=== PATIENT | female | born 1980 | race Caucasian/White ===

== ENCOUNTER 2019-06-17 21:02 | Emergency (ER) | payer MEDICAID ==
[~2019-06-17] VITALS: Ht 157.5 cm; Wt 81.6 kg
[2019-06-17 21:20] VITALS: BP_SYST 107
--- NOTE | 2019-06-17 21:24 | NUR ---
Patient to ER bed 3 to gown for evaluation. Side rails up.
--- NOTE | 2019-06-17 21:30 | NUR ---
ER at bedside examining patient.
--- NOTE | 2019-06-17 21:31 | NUR ---
Pt came to the ED for evaluation of body aches, epigastric pain, loose diarrhea and chills. Reported that she is unable to hold food down. No other complaints/injuries noted. Will cont. to monitor.
[2019-06-17] MEDS ORDERED: NACL 0.9% 1,000 ML IV ONE (21:38)
[2019-06-17] MEDS ORDERED: ONDANSETRON HCL 4 MG/2 ML VIAL IVP ONE (21:45)
--- NOTE | 2019-06-17 22:04 | NUR ---
PT went to radiology via [place] (by [employer]), tolerated well. Will cont. to monitor.
[2019-06-17 22:14] LABS: HEMOGLOBIN 13.8 g/dL (12.0-16.0); MEAN CORPUSCULAR HEMOGLOBIN 31 pg (27-31); MEAN CORPUSCULAR HGB CONC 34 % (32-36); MEAN CORPUSCULAR VOLUME 93 fL (79.0-98.0); PLATELET COUNT (AUTO) 428 K/uL (130-430); RED BLOOD CELL COUNT(AUTO) 4.39 MIL/uL (4.2-6.2); RED CELL DISTRIBUTION WIDTH 12.9 % (9.0-15.0); WHITE BLOOD COUNT (AUTO) 24.3 K/uL (4.8-10.8)
[2019-06-17 22:25] LABS: CALCIUM 8.8 mg/dL (8.4-11.0); CREATININE 0.83 mg/dL (0.55-1.30); POTASSIUM 3.5 mmol/L (3.5-5.1)
[2019-06-17 22:34] LABS: ALBUMIN 3.8 g/dL (3.4-4.8); TOTAL BILIRUBIN 0.7 mg/dL (0.0-1.0)
[2019-06-17 22:53] LABS: ATYPICAL LYMPHOCYTES % 2 % (0-0); BASOPHILS % (MANUAL) 0 % (0-2); EOSINOPHILS % (MANUAL) 0 % (0-7); LYMPHOCYTES % (MANUAL) 12 % (20-46); MONOCYTES % (MANUAL) 4 % (0-11)
[2019-06-17] MEDS ORDERED: PANTOPRAZOLE SODIUM 40 MG/VIAL (PROTONIX) IVP ONE (23:00)
--- NOTE | 2019-06-17 23:30 | NUR ---
PT resting comfortably in bed, no signs of acute distress. Will cont. to monitor.
--- NOTE | 2019-06-18 | NUR ---
Pt notified ER that she has had an "elevated WBC for 3 years since she had a baby and that she needs to follow up with a blood doctor for further testing."
[2019-06-18] MEDS ORDERED: FLUO40CA49 PO (00:27)
[2019-06-18] MEDS ORDERED: BUPR-120 PO (00:27)
[2019-06-18] MEDS ORDERED: LIP20 PO (00:27)
[2019-06-18] MEDS ORDERED: SITA100T11 PO (00:27)
--- NOTE | 2019-06-18 00:30 | NUR ---
PT resting comfortably in bed, no signs of acute distress. Will cont. to monitor.
[2019-06-18] MEDS ORDERED: KETOROLAC TROMETHAMINE 30 MG VIAL IVP ONE (00:45)
--- NOTE | 2019-06-18 01:30 | NUR ---
PT sleeping comfortably in bed, no signs of acute distress. Will cont. to monitor.
[2019-06-18] MEDS ORDERED: LEVOFLOXACIN 500 MG TABLET PO ONE (01:45)
[2019-06-18 02:02] VITALS: BP_SYST 107
--- NOTE | 2019-06-18 02:02 | NUR ---
Patient given written and verbal discharge instructions and verbalizes understanding. ER MD Dr. Robles discussed with patient the results and treatment provided. Patient in stable condition. ID arm band removed. IV catheter removed intact and dressing applied, no active bleeding. Rx of cipro, zofran and protonix given. Patient educated on pain management and to follow up with PMD. Pain Scale 2/10, tolerable for pt. Opportunity for questions provided and answered. Medication side effect fact sheet provided.
== END 2019-06-18 02:02 | disposition home or self-care (01) ==
LOC: SED 21:02
DX: K52.9 Noninfective gastroenteritis and colitis, unspecified (principal); Z79.899 Other long term (current) drug therapy
CPT/HCPCS: 36415; 74021; 74176; 80053; 81025; 83690; 85007; 85027; 96361; 96374; 96375 ×2; 99284; C9113; J1885; J2405; J7030

== ENCOUNTER 2019-06-20 22:11 | Emergency (ER) | payer MEDICAID ==
[~2019-06-20] VITALS: Ht 157.5 cm; Wt 78.9 kg
[~2019-06-20 22:11] MED LIST: BUPR-120 PO; FLUO40CA49 PO; LIP20 PO; SITA100T11 PO
[2019-06-20 22:15] VITALS: BP_SYST 132
--- NOTE | 2019-06-20 22:23 | NUR ---
Patient to ER bed 1 to gown for evaluation. Side rails up. Report given to Cristina BRAUN.
--- NOTE | 2019-06-20 22:34 | NUR ---
ER at bedside examining patient.
--- NOTE | 2019-06-20 22:46 | NUR ---
ER at bedside examining patient.
[2019-06-20] MEDS ORDERED: NACL 0.9% 1,000 ML IV ONE (22:49)
--- NOTE | 2019-06-20 22:50 | NUR ---
patient arrived AOX4 with c/o vomiting since yesterday after taking antibiotics. patient states her doctor told her to stop taking the medication and she started having sob. patient can speak in full sentences without distress. patient is able to walk 100 ft with a stable gait without distress or sob. patient denies distress at this time. no other complaint or injury at this time.
[2019-06-20] MEDS ORDERED: ONDANSETRON HCL 4 MG/2 ML VIAL IVP ONE (23:00)
[2019-06-20 23:07] LABS: BASOPHILS # (AUTO) 0.1 K/uL (0.0-0.2); BASOPHILS % (AUTO) 1.3 % (0.0-2.0); EOSINOPHILS # (AUTO) 0.3 K/uL (0.0-0.4); EOSINOPHILS % (AUTO) 2.4 % (0.0-4.0); HEMATOCRIT 39.5 % (36-48); HEMOGLOBIN 13.5 g/dL (12.0-16.0); LYMPHOCYTES # (AUTO) 3.9 K/uL (1.0-5.5); LYMPHOCYTES % (AUTO) 35.6 % (20.5-51.5); MEAN CORPUSCULAR HEMOGLOBIN 32 pg (27-31); MEAN CORPUSCULAR HGB CONC 34 % (32-36); MEAN CORPUSCULAR VOLUME 93 fL (79.0-98.0); MONOCYTES # (AUTO) 1.3 K/uL (0.0-1.0); MONOCYTES % (AUTO) 11.7 % (1.7-9.3); NEUTROPHILS # (AUTO) 5.3 K/uL (1.8-7.7); PLATELET COUNT (AUTO) 458 K/uL (130-430); RED BLOOD CELL COUNT(AUTO) 4.23 MIL/uL (4.2-6.2); RED CELL DISTRIBUTION WIDTH 12.9 % (9.0-15.0); WHITE BLOOD COUNT (AUTO) 10.8 K/uL (4.8-10.8)
[2019-06-20 23:23] LABS: CREATININE 0.75 mg/dL (0.55-1.30); POTASSIUM 3.3 mmol/L (3.5-5.1)
[2019-06-20 23:35] LABS: ALBUMIN 3.3 g/dL (3.4-4.8); TOTAL BILIRUBIN 0.6 mg/dL (0.0-1.0)
--- NOTE | 2019-06-20 23:44 | NUR ---
patient resting with child. VSS
--- NOTE | 2019-06-21 | NUR ---
patient resting inbed. comfort measures applied. VSS
[2019-06-21 01:23] VITALS: BP_SYST 120
--- NOTE | 2019-06-21 01:24 | NUR ---
Patient given written and verbal discharge instructions and verbalizes understanding. ER MD discussed with patient the results and treatment provided. Patient in stable condition. ID arm band removed. IV catheter removed intact and dressing applied, no active bleeding. Rx of Albuterol, Azithromycin given. Patient educated on pain management and to follow up with PMD. Pain Scale 0/10. Opportunity for questions provided and answered. Medication side effect fact sheet provided.
== END 2019-06-21 01:23 | disposition home or self-care (01) ==
LOC: SED 22:11
DX: J40 Bronchitis, not specified as acute or chronic (principal); R11.10 Vomiting, unspecified; E11.9 Type 2 diabetes mellitus without complications; Z79.899 Other long term (current) drug therapy
CPT/HCPCS: 36415; 71045; 80053; 81025; 83690; 84484; 85025; 93005; 96361; 96374; 99284; J2405; J7030